=== PATIENT | male | born 1955 | race Caucasian/White ===

== ENCOUNTER 2022-04-11 06:24 | Outpatient (CLI) | payer BC ==
[~2022-04-11] VITALS: Ht 182.9 cm; Wt 104.3 kg
[2022-04-11] MEDS ORDERED: GABA300S2 PO (10:12)
[2022-04-11] MEDS ORDERED: LISI10TA25 PO (10:12)
== END 2022-04-11 10:13 | disposition home or self-care (01) ==
LOC: PREOP 06:24
PROVIDERS: ATTEND Surgery
DX: Z01.818 Encounter for other preprocedural examination (principal)

== ENCOUNTER 2022-04-18 12:24 | Day surgery (SDC) | payer BC ==
[~2022-04-18] VITALS: Ht 182 cm; Wt 104.3 kg
[~2022-04-18 12:24] MED LIST: GABA300S2 PO; LISI10TA25 PO
[2022-04-18] MEDS ORDERED: LACTATED RINGERS 1,000 ML IV STA (12:27)
[2022-04-18] MEDS ORDERED: LIDOCAINE JELLY 2% 6 ML SYRINGE MM PRN (12:30)
[2022-04-18 12:40] VITALS: BP 170/96
[2022-04-18] MEDS ORDERED: PROPOFOL INJECTION 50 ML IV ONE (14:15)
--- NOTE | 2022-04-18 14:21 | Progress Note-Pre Operative ---
Pre-Operative Progress Note Date of Available H&P: Apr 18, 2022 Date H&P Reviewed: Apr 18, 2022 Time H&P Reviewed: 12:00 History & Physical: No changes noted Pre-Operative Diagnosis: screening o BRISEIDA KOCH MD Apr 18, 2022 14:21
--- NOTE | 2022-04-18 14:21 | Discharge Inst-Surgical ---
D/C Lap Instructions-AUGUST Follow Up Activity as tolerated High Fiber Diet 25g or more per day Avoid Alcohol, Caffeine, Spicy Burke and Acid foods. Drink 64 fluid oz or more of fluids per day. Symptoms to Report: Fever over 101 degree F, Nausea/Vomiting If any problems/questions: Contact your physician or go to Emergency Room BRISEIDA KOCH MD Apr 18, 2022 14:21
[2022-04-18] MEDS ORDERED: ONDANSETRON 4 MG/2 ML (SDV) Z0FRAN IVP PRN (14:30)
[2022-04-18] MEDS ORDERED: ONDANSETRON 4 MG (ZOFRAN) ORAL DISSOLVE TAB PO PRN (14:30)
[2022-04-18 14:55] VITALS: BP 138/79
[2022-04-18 15:00] VITALS: BP 134/75
[2022-04-18 15:30] VITALS: BP 133/90
--- NOTE | 2022-04-18 15:45 | Anesthesia-General Post-Op ---
MAC Patient Condition Mental Status/LOC: Same as Preop Cardiovascular: Satisfactory Nausea/Vomiting: Absent Respiratory: Satisfactory Pain: Controlled Complications: Absent Post Op Complications Complications None Follow Up Care/Instructions Patient Instructions None needed. Anesthesiology Discharge Order Discharge Order Patient was doing well after the procedure with no complaints, stable vital signs, no apparent adverse anesthesia problems. No complications reported per nursing. CHIKA VÁSQUEZ DO Apr 18, 2022 15:45
--- NOTE | 2022-04-18 20:02 | OPERATIVE REPORT ---
DATE OF SERVICE: 04/18/2022 ATTENDING PRIMARY CARE PHYSICIAN: Dr. Longo. PREOPERATIVE DIAGNOSIS: Screening colonoscopy. POSTOPERATIVE DIAGNOSIS: Mild sigmoid diverticulosis. PROCEDURE: Colonoscopy. SURGEON: Briseida Kellogg MD. ANESTHESIA: Monitored anesthesia care. ESTIMATED BLOOD LOSS: Minimal. FINDINGS: Same as postoperative diagnosis. DISPOSITION: The patient tolerated the procedure well. INDICATIONS: The patient is a 67-year-old male referred over to us for screening colonoscopy. He has not had a colonoscopy up to this point in his life. He states that he is doing well, does not report any major issues with diarrhea nor constipation as well as no red blood per rectum nor any dark tarry stools. He also does not report any family history of colon cancer. DESCRIPTION OF PROCEDURE: The patient was brought to the endoscopy suite, laid in left lateral decubitus position. After adequate IV pain and sedative medications and monitored anesthesia care, a digital rectal examination was performed, which did not reveal any significant hemorrhoids. Normal sphincter tone was felt and there were no palpable masses. Prostate gland was palpable and appeared normal. The endoscope was then intubated into the anus and rectum gently insufflated. The endoscope was then advanced through the valves of Mo of the rectum with no polyps or any neoplasms identified. Through the sigmoid colon, a very mild sigmoid diverticulosis identified. The endoscope was then advanced to the remainder of the descending, transverse and ascending colon to the cecum, which were normal. There were no polyps or any neoplasms identified throughout the colon or rectum. Endoscope was then slowly withdrawn while taking a second look and suctioning of residual air with no additional findings. The patient tolerated the procedure well. We will have him continue with medical management with a high-fiber diet with a fiber supplement, which should equal or exceed 30 grams daily to promote soft consistency stools on a daily basis. If he is asymptomatic, he does not need another colonoscopy for another 10 years. Job ID: [id number] DocumentID: [id number] Dictated Date: 04/18/2022 14:52:50 Adult Family Home Program Manager Date: 04/18/2022 20:01:20 Dictated By: BRISEIDA KELLOGG MD
== END 2022-04-18 15:37 | disposition home or self-care (01) ==
LOC: ENDO 12:24
PROVIDERS: ATTEND Surgery
DX: Z12.11 Encounter for screening for malignant neoplasm of colon (principal); K57.30 Diverticulosis of large intestine without perforation or abscess without bleeding

== ENCOUNTER → 2023-01-24 | Outpatient (CLI) | payer BC ==
[~2023-01-24] MED LIST changes: -GABA300S2 PO; +GABA300S3 PO
== END | disposition home or self-care (01) ==
LOC: PREOP 05:24
PROVIDERS: ATTEND Surgery
DX: Z01.818 Encounter for other preprocedural examination (principal)

== ENCOUNTER 2023-05-16 05:31 | Outpatient (CLI) | payer BC | END 2023-05-17 08:26 | disposition home or self-care (01) | LOC: PREOP 05:31 | PROVIDERS: ATTEND Surgery | DX: Z01.818 Encounter for other preprocedural examination (principal) ==

== ENCOUNTER 2023-06-13 05:43 | Outpatient (CLI) | payer BC ==
[~2023-06-13] VITALS: Ht 182.9 cm; Wt 102.3 kg
[2023-06-13] MEDS ORDERED: ASPI-999 PO (10:38)
[2023-06-13] MEDS ORDERED: TMSL.4C PO (10:38)
== END 2023-06-13 10:57 | disposition home or self-care (01) ==
LOC: PREOP 05:43
PROVIDERS: ATTEND Surgery
DX: Z01.818 Encounter for other preprocedural examination (principal)

== ENCOUNTER 2023-06-20 09:54 | Day surgery (SDC) | payer BC ==
--- NOTE | 2023-06-10 20:58 | HISTORY AND PHYSICAL ---
DATE OF SERVICE: 06/20/2023 HISTORY OF PRESENT ILLNESS: The patient is a 68-year-old male who is known to us. He was seen in 04/2022 for a screening colonoscopy and at that time was found to have a mild sigmoid diverticulosis. On today's visit, he reports that for the past 10 to 11 months, he has had an outpouching of the umbilicus. He denies any diarrhea or constipation as well as no significant discomfort. He also denies any diarrhea or constipation. MEDICAL HISTORY: Hypertension, degenerative joint disease, neuropathy, BPH. SURGICAL HISTORY: Bilateral hip arthroplasty in 2014, 2015. Laparoscopic cholecystectomy 07/2023. ALLERGIES: No known drug allergies. MEDICATIONS: Lisinopril 10 mg, tamsulosin 0.4 mg daily, gabapentin 300 mg b.i.d. SOCIAL HISTORY: Negative for tobacco smoke. Rare for alcohol. FAMILY HISTORY: Father, lung cancer. Maternal grandmother DVT. VITAL SIGNS: Blood pressure is 152/80. Current weight is 233.7 at 6 feet 0 inches. REVIEW OF SYSTEMS: Well-nourished male in no acute distress. He is not experiencing any shortness of breath or difficulty breathing. No chest pain, palpitations or diaphoresis. No nausea, vomiting, abdominal pain. No diarrhea or constipation. No red blood per rectum. No dark tarry stools. No fever or chills. No recent inadvertent weight loss. All other review of systems negative. PHYSICAL EXAM: CHEST: Clear. Good breath sounds bilaterally. HEART: Regular, no murmurs. EXTREMITIES: No lower extremity edema. Negative Homans sign. HEENT: No scleral icterus. No cervical lymphadenopathy. ABDOMEN: Soft, nondistended. There is an umbilical hernia present, which is reducible. SKIN: Warm, dry and pink. NEUROLOGIC: Awake, alert and oriented x3. ASSESSMENT AND PLAN: A 68-year-old male with an umbilical hernia, which is reducible. The risks and benefits of the procedure as well as the procedure and home care instructions were explained to the patient. It was also discussed with him about the risk of incarceration as well as strangulation. At this time, he would like to proceed with surgical intervention. We will proceed with scheduling him for an open umbilical hernia repair with mesh. Job ID: [id number] DocumentID: [id number] Dictated Date: 06/10/2023 15:49:13 Drafter [employer]ings Date: 06/10/2023 20:56:00 Dictated By: LAURY CALLES APRN
[2023-06-20] VITALS (10 sets, daily range): BP systolic 103–140; BP diastolic 63–97
[~2023-06-20] VITALS: Ht 182.9 cm; Wt 102.3 kg
[~2023-06-20 09:54] MED LIST changes: +ASPI-999 PO; +TMSL.4C PO
--- NOTE | 2023-06-20 10:13 | Progress Note-Pre Operative ---
Pre-Operative Progress Note Date H&P Reviewed: Jun 20, 2023 Time H&P Reviewed: 10:10 History & Physical: H&P Reviewed, Patient Examed, No changes noted Pre-Operative Diagnosis: Umbilical hernia LAURY CALLES CIRCUS ARTIST Jun 20, 2023 10:13
[2023-06-20] MEDS ORDERED: HYDR-3817 PO (10:15)
[2023-06-20] MEDS ORDERED: ONDANSETRON INJECTION 4 MG/2 ML (SDV) IVP PRN ×2 (10:15→11:45)
[2023-06-20] MEDS ORDERED: morphine INJ 10 MG/ML 1ML (SYR OR VIAL) IVP PRN (10:15)
[2023-06-20] MEDS ORDERED: ACETAMINOPHEN 325 MG TABLET PO PRN (10:15)
[2023-06-20] MEDS ORDERED: HYDROcodone/ACETAMINOPHEN 5 MG/325 MG TABLET PO ONE (10:15)
--- NOTE | 2023-06-20 10:16 | Discharge Inst-Surgical ---
D/C Lap Instructions-KIDO Reconcile Patient Problems Problems Reviewed?: Yes New, Converted, or Re-Newed RX: RX on Chart Follow Up Appt in 2 weeks Activity as tolerated No driving for 24 hours No driving while on pain medications Incentive Spirometry use every 2 hours while awake Regular Diet Symptoms to Report: Fever over 101 degree F, Nausea/Vomiting Infection Signs and Symptoms to report: Increased redness, Foul odor of wound, Increased drainage Bathing instructions: May shower Operative Area Clean/Dry; Keep incision clean/dry If any problems/questions: Contact your physician or go to Emergency Room LAURY CALLES APRN Jun 20, 2023 10:15
[2023-06-20] MEDS ORDERED: LACTATED RINGERS 1,000 ML 1,000 ML IV PRN (10:30)
[2023-06-20] MEDS ORDERED: ceFAZolin INJECTION 2,000 MG in NS (IVPB) 50 ML 50 ML IV ONE (10:30)
[2023-06-20] MEDS ORDERED: fentaNYL INJECTION 100 MCG/2 ML VIAL ONE (10:42)
[2023-06-20] MEDS ORDERED: LIDOCAINE 2% w/EPI 1:100,000 20 ML VIAL ONE (11:05)
--- NOTE | 2023-06-20 11:27 | Progress Note-Post Operative ---
Post-Operative Progess Note Surgeon (s)/Director Of Research And Development (s) Surgeon BRISEIDA KOCH MD Director Of Research And Development: elissa forte WELL DRILLER HELPER Pre-Operative Diagnosis Umbilical hernia Post-Operative Diagnosis incarcerated umbilical hernia Procedure & Operative Findings Date of Procedure 06/20/23 Procedure Performed/Findings incarcerated umbilical hernia repair with mesh. Anesthesia Type get Estimated Blood Loss Estimated blood loss (mL): minimal Specimens/Packing Specimens Removed none BRISEIDA KOCH MD Jun 20, 2023 11:27
[2023-06-20] MEDS ORDERED: proPOfol INJECTION 200 MG/20 ML VIAL IV ONE (11:30)
[2023-06-20] MEDS ORDERED: dexAMETHasone INJ 10 MG/ML 1 ML VIAL ONE (11:30)
[2023-06-20] MEDS ORDERED: ONDANSETRON INJECTION 4 MG/2 ML (SDV) ONE (11:30)
[2023-06-20] MEDS ORDERED: LIDOCAINE PF 2% 5 ML VIAL ONE (11:30)
[2023-06-20] MEDS ORDERED: GLYCOPYRROLATE INJ 0.2 MG/ML 2 ML VIAL ONE (11:30)
[2023-06-20] MEDS ORDERED: ROCURONIUM 50 MG/5 ML VIAL IV ONE (11:30)
[2023-06-20] MEDS ORDERED: NEOSTIGMINE 1 MG/1ML 10 ML VIAL ONE (11:30)
[2023-06-20] MEDS ORDERED: SEVOFLURANE (ULTANE) 15 ML INHAL SOLN ONE (11:30)
[2023-06-20] MEDS ORDERED: morphine INJ 10 MG/ML 1ML (SYR OR VIAL) IVP ONE (11:45)
[2023-06-20] MEDS ORDERED: KETOROLAC INJ 30 MG/ML VIAL IVP ONE (11:45)
[2023-06-20] MEDS ORDERED: KETOROLAC INJ 30 MG/ML VIAL ONE (11:48)
--- NOTE | 2023-06-20 13:51 | OPERATIVE REPORT ---
DATE OF SERVICE: 06/20/2023 PREOPERATIVE DIAGNOSIS: Symptomatic incarcerated umbilical hernia. POSTOPERATIVE DIAGNOSIS: Symptomatic incarcerated umbilical hernia with defect size approximately 1 cm in size. PROCEDURE: Open repair, incarcerated umbilical hernia. SURGEON: Briseida Koch MD SURVEYING TECHNICIAN: Mohit Moreira APRN ANESTHESIA: General endotracheal. ESTIMATED BLOOD LOSS: Minimal. FINDINGS: Symptomatic incarcerated umbilical hernia with defect size approximately 1 cm in size. DISPOSITION: The patient tolerated the procedure well. INDICATIONS: The patient is a 68-year-old male who developed an outpouching and some discomfort in the supraumbilical region approximately one year ago. He states that over time, this lesion has grown larger in size and become painful. He also states that the lesion has outpouched and stayed that way. Upon examination, he was found to have an incarcerated umbilical hernia, which was small in size. He is otherwise eating well and having normal bowel movements. DESCRIPTION OF PROCEDURE: The patient was brought to the operating room, laid supine on the table. After adequate IV pain and sedative medications and general endotracheal intubation, the abdomen was prepped and draped in standard surgical fashion. A 2% lidocaine with epinephrine was then used to anesthetize the supraumbilical rim and a crescent-shaped skin incision made using a #15 blade. Subcutaneous tissue was then dissected using electrocautery. The hernia sac was identified and completely dissected out using blunt dissection as well as electrocautery to the fascial base. The hernia sac was then opened with cautery under direct visualization, There was only omentum within the hernia sac. The hernia sac as well as omentum was then excised using electrocautery. The defect in the fascia was only a 1 cm in size and a 6 cm coated polypropylene mesh was then placed into the defect and sutured transfascially in a concentric manner to the mesh using interrupted 0 Prolene sutures. Good hemostasis was observed. The base of the umbilicus was then sutured to the mesh using [id number] 3-0 Vicryl suture. Subcutaneous tissue was then reapproximated with the same suture in an interrupted manner and the skin was closed using 4-0 Monocryl running subcuticular suture. Wound was then cleaned and covered with Dermabond, followed by tonsil sponges, followed by 4 x 4 gauze, followed by a large Op-Site and a large abdominal binder. The patient tolerated the procedure well. We will start IV normal pain medication as well as a clear liquid diet. Once he is tolerating clears, has good pain control with oral pain medications, ambulating well, we will discharge him home where he will be instructed to do no heavy lifting or exertion for the next 2 weeks as well as to wear the abdominal binder both day and night for the same time duration. Job ID: [id number] DocumentID: [id number] Dictated Date: 06/20/2023 11:42:46 Curriculum Facilitator Date: 06/20/2023 13:49:00 Dictated By: BRISEIDA KOCH MD
== END 2023-06-20 13:56 | disposition home or self-care (01) ==
LOC: SDC 09:54
PROVIDERS: ATTEND Surgery
DX: K42.0 Umbilical hernia with obstruction, without gangrene (principal); E66.9 Obesity, unspecified; Z68.30 Body mass index [BMI] 30.0-30.9, adult
CPT/HCPCS: 49592; 87081; C1781